=== PATIENT | male | born 1945 | race Hispanic/Latino ===

== ENCOUNTER 2018-01-30 08:08 | Day surgery (SDC) | payer MEDICARE ==
[~2018-01-30] VITALS: Ht 171.4 cm; Wt 79.4 kg
[~2018-01-30 08:08] MED LIST: SODIUM CHLORIDE 0.9% 1000ML 1,000 ML IV ONE
[2018-01-30 09:15] VITALS: BP 149/63
[2018-01-30] MEDS ORDERED: CALC-1038 PO (09:26)
[2018-01-30] MEDS ORDERED: WARF3TAB59 PO (09:26)
[2018-01-30] MEDS ORDERED: ROSU20TA PO (09:26)
[2018-01-30] MEDS ORDERED: PROPOFOL 1000 MG/100 ML 100 ML IV ONE (10:01)
[2018-01-30] MEDS ORDERED: LIDOCAINE HCL-MPF 2% 5ML VIAL ONE (10:02)
[2018-01-30 10:38] VITALS: BP 107/61
[2018-01-30 10:43] VITALS: BP 102/58
[2018-01-30 10:48] VITALS: BP 104/58
== END 2018-01-30 11:00 | disposition home or self-care (01) ==
LOC: ENDO 08:08 → DAH 08:08 → ENDO 11:00
PROVIDERS: ATTEND Internal Medicine
DX: K29.50 Unspecified chronic gastritis without bleeding (principal); K31.7 Polyp of stomach and duodenum; K22.8 Other specified diseases of esophagus; K31.89 Other diseases of stomach and duodenum; E78.2 Mixed hyperlipidemia; Z79.01 Long term (current) use of anticoagulants; Z79.899 Other long term (current) drug therapy; E78.5 Hyperlipidemia, unspecified; Z86.010 Personal history of colon polyps; Z86.718 Personal history of other venous thrombosis and embolism; Z98.890 Other specified postprocedural states; Z88.8 Allergy status to other drugs, medicaments and biological substances
CPT/HCPCS: 43239; 88305; 88342; A4606; J2704; J3490; J7030

== ENCOUNTER → 2021-11-22 | Outpatient (CLI) | payer OTHER, MEDICARE ==
[~2021-11-22] MED LIST changes: +CALC-1038 PO; +ROSU20TA23 PO; -SODIUM CHLORIDE 0.9% 1000ML 1,000 ML IV ONE; +WARF3TAB59 PO
== END | disposition home or self-care (01) ==
LOC: RAH 10:18
PROVIDERS: ATTEND Internal Medicine
DX: E04.2 Nontoxic multinodular goiter (principal); R22.2 Localized swelling, mass and lump, trunk; M54.6 Pain in thoracic spine; D17.79 Benign lipomatous neoplasm of other sites
CPT/HCPCS: 76604

== ENCOUNTER → 2022-08-17 | Outpatient (CLI) | payer OTHER, MEDICARE | END | disposition home or self-care (01) | LOC: SHCH 08:37 | PROVIDERS: ATTEND Internal Medicine Cardiovascular Disease | DX: I87.2 Venous insufficiency (chronic) (peripheral) (principal); I70.203 Unspecified atherosclerosis of native arteries of extremities, bilateral legs | CPT/HCPCS: 93925; 93970 ==

== ENCOUNTER → 2022-10-16 | Outpatient (CLI) | payer OTHER, MEDICARE | END | disposition home or self-care (01) | LOC: SHCH 13:43 | PROVIDERS: ATTEND Internal Medicine Cardiovascular Disease | DX: I87.2 Venous insufficiency (chronic) (peripheral) (principal) | CPT/HCPCS: 93971 ==